=== PATIENT | female | born 1980 | race African-American/Black ===

== ENCOUNTER 2020-12-20 13:34 | Outpatient (REF) | payer MEDICAID, SELFPAY ==
[2020-12-20 15:17] LABS: Hematocrit 37.7 % (37-47); Hemoglobin 11.5 g/dl (12.0-16.0); Mean Corpuscular HGB Conc 30.5 g/dl (31.0-35.0); Mean Corpuscular Hemoglobin 25.8 pg (27.0-33.0); Mean Corpuscular Volume 84.7 fL (80-98); Mean Platelet Volume 9.4 fL (9.4-12.3); Platelet Count 352 X10*3/uL (160-400); Red Blood Count 4.45 X10*6/uL (4.20-5.50); Red Cell Distribution Width 12.9 % (11.0-16.0); White Blood Count 5.5 X10*3/uL (4.8-10.8)
[2020-12-20 16:35] LABS: HCG Quantitative < 2 mIU/mL; TSH reflex Free T4 0.34 uIU/mL (0.32-4.0)
[2020-12-21 02:21] LABS: CT PCR NOT DETECTED (Not Detect.); NG PCR NOT DETECTED (Not Detect.)
== END 2020-12-20 13:35 | disposition home or self-care (01) ==
LOC: HO.LAB 13:34
PROVIDERS: Visit Provider Obstetrics & Gynecology
DX: N93.9 Abnormal uterine and vaginal bleeding, unspecified (principal); N92.1 Excessive and frequent menstruation with irregular cycle
CPT/HCPCS: 36415; 84443; 84702; 85027; 87491; 87591; 99212

== ENCOUNTER 2020-12-26 09:17 | Outpatient (REF) | payer MEDICAID, SELFPAY ==
--- NOTE | ~2020-12-26 | MM_ITS ---
EXAMINATION: MM SCREENING DIGITAL BREAST TOMOSYNTHESIS, BILATERAL CLINICAL INFORMATION: Screening. Asymptomatic. Age 40. No prior breast imaging. No known family history breast cancer. The lifetime risk of breast cancer based on the Tyrer-Cuzick Model is 10%. COMPARISON: None (current study represents initial baseline exam). TECHNIQUE: Digital breast tomosynthesis is performed in both the craniocaudal and mediolateral oblique views along with computer-aided detection (CAD). Synthesized 2D images are generated from the tomosynthesis. Additional left MLO view is provided. FINDINGS: There are scattered areas of fibroglandular density (ACR BI-RADS breast composition Category b). There are no significant masses, architectural abnormality, or abnormal calcifications. There are mild symmetric prominent veins bilateral medial breasts. No axillary venous prominence. No skin thickening or coarsening of the Fransico's ligaments. Skin contours are smooth. MM/MM tomosynthesis screening BI IMPRESSION: No mammographic evidence of malignancy. ASSESSMENT: BI-RADS 2: Benign RECOMMENDATION: Routine annual mammography screening. This patient's information was entered into a reminder system with a target due date for their next mammogram.
== END 2020-12-26 09:18 | disposition home or self-care (01) ==
LOC: HO.MAMMO 09:17
PROVIDERS: Visit Provider Pediatrics
DX: Z12.31 Encounter for screening mammogram for malignant neoplasm of breast (principal)
CPT/HCPCS: 77063; 77067

== ENCOUNTER 2020-12-26 12:07 | Outpatient (REF) | payer MEDICAID, SELFPAY ==
--- NOTE | ~2020-12-26 | US_ITS ---
EXAMINATION: ULTRASOUND PELVIS AND TRANSVAGINAL CLINICAL INFORMATION: Abnormal uterine and vaginal bleeding. COMPARISON: Ultrasound pelvis 06/23/2019. TECHNIQUE: Transabdominal and transvaginal imaging of pelvis is performed. FINDINGS: The uterus is anteverted and anteflexed measuring 12.6 cm in length, 6.6 cm in AP and 9.6 cm in transverse dimension. The endometrial thickness is 1.64 cm. There are multiple hypoechoic lesions consistent with fibroids. 1. Fibroid in the left upper body of uterus measures 3.5 x 3.2 x 2.9 cm. Previously it measured 2.9 x 2.2 x 2.5 cm. 2. Lesion in the mid right body of uterus measures 3.9 x 3.6 x 3.1 cm. Previously it measured 4.0 x 4.2 x 3.8 cm. 3. Lesion in the posterior right body of uterus measures 2.3 x 1.6 x 2.2 cm. Previously it measured 2.6 x 1.6 x 1.6 cm. There is some minimal free fluid in the endometrial canal. There are small anechoic cysts. Some of the cysts are septated. The right ovary measures 3.2 x 1.7 x 1.8 cm and volume 5.1 mL. It appears unremarkable. The left ovary measures 2.8 x 1.5 x 1.5 cm and volume 3.3 mL. It appears unremarkable. There is a small amount of free fluid in the cul-de-sac US/US pelvic and transvaginal IMPRESSION: At least 3 uterine fibroids are stable. There is minimal fluid within the endometrial canal. The ovaries are unremarkable. Simple and complex nabothian cysts in the cervix. Minimal free fluid in cul-de-sac.
== END 2020-12-26 12:08 | disposition home or self-care (01) ==
LOC: HO.US 12:07
PROVIDERS: Visit Provider Obstetrics & Gynecology
DX: N93.9 Abnormal uterine and vaginal bleeding, unspecified (principal)
CPT/HCPCS: 76830; 76856

== ENCOUNTER 2020-12-29 12:29 | Day surgery (SDC) | payer MEDICAID, SELFPAY ==
--- NOTE | 2020-12-27 12:01 | HO.ANESPROP2 ---
Documented by User: Belgica Cotton 12/27/20 12:01 HPI - Anesthesia Eval Consult details Narrative: 40yo F for D&C Diagnostic Hysteroscopy, Poss Polypectomy, Poss Myomectomy PMFSH Active Problems Active Problems: All Active Problems (Updated 12/20/20 @ 14:14 by Jim Lagos MD) Menometrorrhagia (Acute) Past Medical History Medical History (Updated 12/29/20 @ 13:38 by Allyssa Villela) Carpal tunnel syndrome of right wrist Hyperthyroidism Palpitations Surgical History Surgical History (Updated 12/29/20 @ 13:39 by Allyssa Villela) Hx of section S/P carpal tunnel release Social History Social History Alcohol intake: never Patient Tobacco Use Status: Never used Tobacco Use of substances other than those prescribed or required for medical reasons: No Are you DNR?: No Advance Directives: No Advance Directives Information Provided: Yes Recently lost weight without trying: No Nutrition Risks: No Nutritional Risk Patient : No FDLMP: 12/29/20 Poor oral hygiene: No Meds Allergies Allergy/AdvReac Type Severity Reaction Status Date / Time acetaminophen [From Percocet] AdvReac Mild Headache Verified 12/29/20 13:10 oxycodone [From Percocet] AdvReac Mild Headache Verified 12/29/20 13:10 Home Medications Medication Instructions Recorded Confirmed Last Taken Type ferrous sulfate 325 mg (65 mg 325 mg PO DAILY 12/20/20 Unknown History iron) tablet Exam Exam Date and Time: December 27, 2020 1201 Pertinent Lab Results Pertinent Lab Results: Laboratory Tests 12/20/20 14:35 WBC 5.5 Hgb 11.5 L Hct 37.7 Plt Count 352 Assessment and Plan Assessment Anesthesia Assessment: Chart Reviewed Documented by User: Allyssa Villela 12/29/20 13:41 PMFSH Past Medical History Medical History (Updated 12/29/20 @ 13:38 by Allyssa Villela) Carpal tunnel syndrome of right wrist Hyperthyroidism Palpitations Family History Family history of problems with anesthesia: No Surgical History Surgical History (Updated 12/29/20 @ 13:39 by Allyssa Villela) Hx of section S/P carpal tunnel release History of Problems with Anesthesia: No ('Woke up' during carpal tunnel surgery) Social History Social History Alcohol intake: never Patient Tobacco Use Status: Never used Tobacco Use of substances other than those prescribed or required for medical reasons: No Are you DNR?: No Advance Directives: No Advance Directives Information Provided: Yes Recently lost weight without trying: No Nutrition Risks: No Nutritional Risk Patient : No FDLMP: 12/29/20 Poor oral hygiene: No Meds Allergies Allergy/AdvReac Type Severity Reaction Status Date / Time acetaminophen [From Percocet] AdvReac Mild Headache Verified 12/29/20 13:10 oxycodone [From Percocet] AdvReac Mild Headache Verified 12/29/20 13:10 Home Medications Medication Instructions Recorded Confirmed Last Taken Type ferrous sulfate 325 mg (65 mg 325 mg PO DAILY 12/20/20 Unknown History iron) tablet Exam Height,Weight and Vital Signs: Vital Signs Temp Pulse Resp BP Pulse Ox 12/29/20 13:11 98.3 F 73 16 111/57 L 98 Pertinent Lab Results Pertinent Lab Results: Lab Results 12/29/20 Range/Units 12:45 Urine Test NEGATIVE (NEGATIVE) Airway Mallampati Class: II TM Dist: >3cm Neck ROM: Full Heart: RRR Lungs: CTAB Assessment and Plan Assessment Anesthesia Assessment: Anesthesia Plan Discussed and Chart Reviewed Final Anesthetic Review NPO: Yes ASA Class: II Final Preanesthetic Review: No Changes in Pt Med Stat, Meds/Allgs Chart Reviewed, Consent Obtained/Reviewed and Anes Risks/Benef Reviewed Patient Risk: Low Procedure Risk: Low Assessment/Block/Sedation in SS: Assess/Block/Sedation-SS Anesthetic Plan Anesthetic Plan: GA Disposition: Standard PACU
[2020-12-29 13:00] LABS: UPreg QC Valid YES; Urine Pregnancy NEGATIVE (NEGATIVE)
[2020-12-29 13:04] VITALS: BMI 29.0
[2020-12-29 13:11] VITALS: BP 111/57; PULSE 73; RESP 16; TEMP 36.8; O2SAT 98
[2020-12-29] MEDS: Lactated Ringers 1,000 ML 100 ML IVCONT (13:37)
--- NOTE | 2020-12-29 14:29 | P.BOP_ITS ---
Brief Operative Note Date of Service: 12/29/20 Pre-op diagnosis: menometrorrhagia and multiple myomas Post-op diagnosis: same ( submucosal myoma) Procedure: Hysteroscopy D&C, myomectomy Surgeon: Jim Lagos MD Anesthesia: MAC Was an Ball Mill Operator used for this Procedure?: No Estimated blood loss (mL): 0 Pathology: other (Endometrial Scrapping. submucosal myoma) Condition: stable Disposition: PACU
--- NOTE | 2020-12-29 14:30 | W.PM.OPN ---
Operative Note Operative Note Date of Service: 12/29/20 Narrative: Preop Diagnosis: menometrorrhagia and multiple myomas Operation: Diagnostic Hysteroscopy, Dilataion & Curettage and submucosal hysteroscopic myomectomy Post Op Diagnosis: Endometrial fundal myoma QBL: Minimal Anesthesia: MAC Surgeon: Jim Lagos MD Retanned Leather Roller: None Complication: None Pathology: Endometrial Scrapings, myoma Complication: None Pathology: Endometrial Scrapings, endometrial submucosal myoma Procedure: The patient was put in the dorsal lithotomy position, scrubbed, and draped in the usual manner. A sterile speculum was inserted in the patient's vagina. The anterior lip of the cervix was grasped with a single tooth tenaculum. The cervix was dilated up to 5 mm, then the scope was inserted in the patient's uterus. Inspection revealed fundal submucosal myoma. The Myosure Reach device was used; it was introduced through the operative channel and a submucosal hysteroscopic myomectomy performed with no complications. At the end of the procedure, all instruments were taken out of the patient uterine and vaginal cavity. The single tooth tenaculum was removed and homeostasis was assured using pressure,. The patient tolerated the procedure well and was transferred to the PACU in a stable condition.
[2020-12-29 14:35] VITALS: BP 113/67; PULSE 76; RESP 16; TEMP 36.2; O2SAT 100
[2020-12-29 14:40] VITALS: BP 111/62; PULSE 74; RESP 16; O2SAT 99
[2020-12-29 14:45] VITALS: BP 115/65; PULSE 80; RESP 16; O2SAT 99
[2020-12-29] MEDS: Ketorolac Tromethamine 15 MG/ML VIAL IVPUSH (14:45)
[2020-12-29 14:50] VITALS: BP 109/63; PULSE 70; RESP 16; O2SAT 99
[2020-12-29] MEDS: traMADoL HCL 50 MG TABLET PO (14:50)
[2020-12-29 15:05] VITALS: BP 101/60; PULSE 60; RESP 16; TEMP 36.2; O2SAT 99
== END 2020-12-29 15:35 | disposition home or self-care (01) ==
PROVIDERS: Nurse Practitioner; Visit Provider Obstetrics & Gynecology
PROC: 0UDB8ZX Extraction of Endometrium, Via Natural or Artificial Opening Endoscopic, Diagnostic (ICD-10-PCS; CPT 58558; principal; 2020-12-29 13:00)
DX: N92.1 Excessive and frequent menstruation with irregular cycle (principal); D25.0 Submucous leiomyoma of uterus; Z88.8 Allergy status to other drugs, medicaments and biological substances
CPT/HCPCS: 58561; 81025; 88305; J1100; J1885; J2250; J2405; J3010

== ENCOUNTER → 2021-01-01 15:48 | Outpatient (BNVA) | payer MEDICAID, SELFPAY | PROVIDERS: Visit Provider Obstetrics & Gynecology ==